=== PATIENT | female | born 1975 | race Caucasian/White ===

== ENCOUNTER → 2017-08-16 | Outpatient (CLI) | payer BC ==
[2017-08-16 08:17] LABS: Basophils % (A) 0 %; CH 30.4; CHCM 33.2; Eosinophils # (A) 0.2 k/uL (0-0.7); Eosinophils % (A) 3 %; HCT 45.4 % (34.0-46.0); HGB 14.9 gm/dL (11.4-16.0); Luc # (Auto) 0.11; Luc % (Auto) 2; Lymphocytes # (A) 1.8 k/uL (1.0-4.8); Lymphocytes % (A) 25 %; MCHC 32.7 g/dL (31.0-37.0); MCV 91.8 fL (80.0-100.0); Mean Platelet Volume 6.8; Monocytes # (A) 0.4 k/uL (0-1.0); Monocytes % (A) 6 %; Neutrophils # (A) 4.5 k/uL (1.3-7.7); Neutrophils % (A) 64 %; RBC 4.95 m/uL (3.80-5.40); RDW 11.8 % (11.5-15.5); WBC 7.1 k/uL (3.8-10.6); WBC (Perox) 6.89
[2017-08-16 08:44] LABS: ALT 20 U/L (9-52); AST 16 U/L (14-36); Alkaline Phosphatase 67 U/L (38-126); Anion Gap 11 mmol/L; Blood Urea Nitrogen 14 mg/dL (7-17); Calcium 9.2 mg/dL (8.4-10.2); Carbon Dioxide 21 mmol/L (22-30); Chloride 109 mmol/L (98-107); Cholesterol 149 mg/dL (<200); Glucose 91 mg/dL (74-99); HDL Cholesterol 56 mg/dL (40-60); Non-African American GFR(MDRD) >60 (>60 ml/min/1.73 sqM); Potassium 4.3 mmol/L (3.5-5.1); Sodium 141 mmol/L (137-145); Total Bilirubin 0.8 mg/dL (0.2-1.3); Total Protein 6.9 g/dL (6.3-8.2)
[2017-08-16 12:28] LABS: Gliadin AB IgA, Deaminated NEGATIVE (NEGATIVE); Gliadin AB IgG, Deaminated NEGATIVE (NEGATIVE); Gliadin AB IgG, Unit <0.4 U/mL; Tis Transglutaminase IgA Unit <0.5 AI; Tis Transglutaminase IgG Unit <0.8 U/mL
== END | disposition home or self-care (01) ==
LOC: LABWHC1 07:12
PROVIDERS: ATTEND Family Medicine
DX: L20.9 Atopic dermatitis, unspecified (principal); E16.2 Hypoglycemia, unspecified; R53.83 Other fatigue; R63.5 Abnormal weight gain; F41.9 Anxiety disorder, unspecified
CPT/HCPCS: 36415; 80053; 80061; 82652; 83516; 84439; 84443; 85025; 86800

== ENCOUNTER → 2017-08-18 | Outpatient (CLI) | payer BC ==
[2017-08-18 20:46] LABS: Mumps Virus IgG Ab Interp POSITIVE (NEGATIVE)
== END | disposition home or self-care (01) ==
LOC: LABWHC1 12:37
PROVIDERS: ATTEND Family Medicine
DX: Z01.84 Encounter for antibody response examination (principal)
CPT/HCPCS: 36415; 86376; 86735

== ENCOUNTER → 2018-11-04 | Outpatient (CLI) | payer BC ==
--- NOTE | 2018-11-04 13:03 | XR ---
EXAMINATION TYPE: XR chest 2V DATE OF EXAM: 11/04/2018 COMPARISON: NONE TECHNIQUE: PA and lateral views submitted. HISTORY: Cough FINDINGS: The lungs are clear and there is no pneumothorax, pleural effusion, or focal pneumonia. Biapical pl eural thickening. No overt failure. Hypertrophic change of the vertebral column. IMPRESSION: 1. No acute process.
== END | disposition home or self-care (01) ==
LOC: RADXRMAIN 12:12
PROVIDERS: ATTEND Family Medicine
DX: R05 Cough (principal)
CPT/HCPCS: 71046

== ENCOUNTER → 2019-02-26 | Outpatient (CLI) | payer BC ==
[2019-02-26 10:04] LABS: Basophils # (A) 0.1 k/uL (0-0.2); Basophils % (A) 1 %; Eosinophils # (A) 0.1 k/uL (0-0.7); Eosinophils % (A) 2 %; HCT 45.3 % (34.0-46.0); HGB 14.5 gm/dL (11.4-16.0); Lymphocytes # (A) 1.7 k/uL (1.0-4.8); Lymphocytes % (A) 30 %; MCH 30.1 pg (25.0-35.0); Mean Platelet Volume 7.1; Monocytes # (A) 0.3 k/uL (0-1.0); Monocytes % (A) 6 %; Neutrophils # (A) 3.4 k/uL (1.3-7.7); Neutrophils % (A) 59 %; Platelet Count 232 k/uL (150-450); RBC 4.81 m/uL (3.80-5.40); RDW 12.1 % (11.5-15.5); WBC 5.8 k/uL (3.8-10.6)
[2019-02-26 16:45] LABS: Albumin 4.5 g/dL (3.80-4.90); Albumin/Globulin Ratio 2.5 (1.60-3.17); Anion Gap 8.5 mmol/L (4.00-12.00); Calcium 9.3 mg/dL (8.7-10.3); Carbon Dioxide 24.5 mmol/L (21.6-31.8); Globulin 1.8 g/dL (1.6-3.3); LDL Cholesterol,Calculated 85.6 mg/dL (0.0-131.0); Potassium 4.3 mmol/L (3.5-5.5); Total Bilirubin 0.7 mg/dL (0.3-1.2); Total Protein 6.3 g/dL (6.2-8.2); VLDL Calculation 14.4 mg/dL (5.00-40.00)
== END | disposition home or self-care (01) ==
LOC: LABWHC1 09:19
PROVIDERS: ATTEND Family Medicine
DX: Z00.00 Encounter for general adult medical examination without abnormal findings (principal)
CPT/HCPCS: 36415; 80053; 80061; 84443; 85025

== ENCOUNTER → 2020-06-07 | Outpatient (CLI) | payer BC ==
[2020-06-07 09:37] LABS: Basophils % (A) 1 %; Eosinophils # (A) 0.1 k/uL (0-0.7); Eosinophils % (A) 2 %; HCT 45.2 % (34.0-46.0); HGB 14.5 gm/dL (11.4-16.0); Lymphocytes # (A) 1.6 k/uL (1.0-4.8); Lymphocytes % (A) 24 %; MCH 29.9 pg (25.0-35.0); MCHC 31.9 g/dL (31.0-37.0); MCV 93.7 fL (80.0-100.0); Mean Platelet Volume 7.4; Monocytes # (A) 0.3 k/uL (0-1.0); Monocytes % (A) 5 %; Neutrophils # (A) 4.4 k/uL (1.3-7.7); Neutrophils % (A) 67 %; Platelet Count 210 k/uL (150-450); RBC 4.83 m/uL (3.80-5.40); RDW 11.9 % (11.5-15.5); WBC 6.6 k/uL (3.8-10.6)
[2020-06-07 16:27] LABS: African American GFR (CKD) 128.5 (60.0-200.0); Albumin/Globulin Ratio 2.22 (1.60-3.17); Anion Gap 5.9 mmol/L (4.00-12.00); BUN/Creat Ratio 16.67 Ratio (12.00-20.00); Calcium 9.2 mg/dL (8.7-10.3); Carbon Dioxide 27.1 mmol/L (21.6-31.8); Chol/HDL Ratio 2.71; Globulin 1.8 g/dL (1.6-3.3); LDL Cholesterol,Calculated 88.6 mg/dL (0.0-131.0); Non-African American GFR(CKD) 110.9 (60.0-200.0); Potassium 4.4 mmol/L (3.5-5.5); Total Bilirubin 0.7 mg/dL (0.3-1.2); Total Protein 5.8 g/dL (6.2-8.2); VLDL Calculation 12.4 mg/dL (5.00-40.00)
[2020-06-07 20:59] LABS: Hemoglobin A1C 5.2 % (4.0-6.0)
== END | disposition home or self-care (01) ==
LOC: LABWHC1 08:31
PROVIDERS: ATTEND Family Medicine
DX: Z00.00 Encounter for general adult medical examination without abnormal findings (principal); E16.2 Hypoglycemia, unspecified
CPT/HCPCS: 36415; 80053; 80061; 83036; 84443; 85025

== ENCOUNTER → 2020-07-17 | Outpatient (CLI) | payer BC ==
--- NOTE | 2020-07-18 14:09 | MM ---
Reason for exam: screening (asymptomatic). Last mammogram was performed 6 years and 9 months ago. History: Patient is postmenopausal. Family history of breast cancer in maternal aunt at age 40. Took hormonal contraceptives for 5 years beginning at age 15. Physical Findings: A clinical breast exam by your physician is recommended on an annual basis and results should be correlated with mammographic findings. MG 3D Screening Mammo W/Cad Bilateral CC and MLO view(s) were taken. XCCL view(s) were taken of the right breast. Prior study comparison: October 07, 2013, bilateral digital screening mammo w/CAD. The breast tissue is heterogeneously dense. This may lower the sensitivity of mammography. Benign appearing bilateral calcifications. Middle depth grouped calcifications of left breast upper outer quadrant layer on MLO view, likely milk of calcium. ASSESSMENT: Benign, BI-RAD 2 RECOMMENDATION: Routine screening mammogram of both breasts in 1 year.
== END | disposition home or self-care (01) ==
LOC: RADMAMWWP 08:53
PROVIDERS: ATTEND Family Medicine
DX: Z12.31 Encounter for screening mammogram for malignant neoplasm of breast (principal)
CPT/HCPCS: 77063; 77067

== ENCOUNTER → 2020-12-28 | Outpatient (CLI) | payer BC ==
[2020-12-28 15:28] LABS: Basophils # (A) 0.03 X 10*3/uL (0.00-0.10); Basophils % (A) 0.6 %; Eosinophils # (A) 0.13 X 10*3/uL (0.04-0.35); Eosinophils % (A) 2.6 %; HCT 43.5 % (37.2-46.3); HGB 13.8 g/dL (12.0-15.0); Lymphocytes # (A) 1.61 X 10*3/uL (0.90-5.00); Lymphocytes % (A) 32.6 %; MCH 30.3 pg (27.0-32.0); MCHC 31.7 g/dL (32.0-37.0); MCV 95.6 fL (80.0-97.0); Mean Platelet Volume 10.9 fL (9.5-12.2); Monocytes # (A) 0.49 X 10*3/uL (0.20-1.00); Monocytes % (A) 9.9 %; Neutrophils # (A) 2.67 X 10*3/uL (1.80-7.70); Neutrophils % (A) 54.1 %; Platelet Count 225 X 10*3/uL (140-440); RBC 4.55 X 10*6/uL (4.10-5.20); RDW 11.9 % (11.5-14.5); WBC 4.94 X 10*3/uL (4.50-10.00)
[2020-12-28 23:21] LABS: African American GFR (CKD) 121.3 (60.0-200.0); Albumin 3.9 g/dL (3.80-4.90); Albumin/Globulin Ratio 1.77 (1.60-3.17); Anion Gap 5.5 mmol/L (4.00-12.00); BUN/Creat Ratio 18.57 Ratio (12.00-20.00); Calcium 9.4 mg/dL (8.7-10.3); Carbon Dioxide 27.5 mmol/L (21.6-31.8); Globulin 2.2 g/dL (1.6-3.3); Non-African American GFR(CKD) 104.6 (60.0-200.0); Potassium 4.2 mmol/L (3.5-5.5); Total Bilirubin 0.7 mg/dL (0.3-1.2); Total Protein 6.1 g/dL (6.2-8.2)
== END | disposition home or self-care (01) ==
LOC: LABWHC1 08:25
PROVIDERS: ATTEND Family Medicine
DX: E16.2 Hypoglycemia, unspecified (principal); R10.11 Right upper quadrant pain; R53.83 Other fatigue
CPT/HCPCS: 36415; 80053; 82150; 82306; 82607; 83525; 83690; 84443; 85025; 86769

== ENCOUNTER → 2022-06-19 | Outpatient (CLI) | payer BC ==
--- NOTE | 2022-06-19 15:21 | MM ---
Reason for Exam: Clinical finding. Last mammogram was performed 1 year(s) and 11 month(s) ago. Patient History: Menarche at age 12. First Full-Term at age 23. Left ovary removed at age 36. Right ovary removed at age 36. Hysterectomy at age 36. Postmenopausal. Hormonal Contraceptives for 5 years from age 15 until age 20. Maternal aunt had breast cancer, age 40. Risk Values: Yudith 5 year model risk: 0.8%. NCI Lifetime model risk: 8.4%. Prior Study Comparison: 10/07/2013 Bilateral Screening Mammogram, [facility]. 07/17/2020 Bilateral Screening Mammogram, [facility]. Tissue Density: The breast tissue is heterogeneously dense. This may lower the sensitivity of mammography. Findings: Analyzed By CAD. On the right, some areas of nodular asymmetric density disperses on additional views compatible with superimposition shadow. On the left, an area of asymmetric density inferiorly on the MLO view remains unchanged. No significant change from prior exams. Given the reported history and clinical concern, further ultrasound evaluation is recommended. Overall Assessment: Incomplete: need additional imaging evaluation, BI-RAD 0 Management: Diagnostic Breast Ultrasound of both breasts. Electronically signed and approved by: Vivek Lord M.D. Radiologist
--- NOTE | 2022-06-19 16:01 | USB ---
Reason for Exam: Additional evaluation requested from abnormal screening. Patient History: Menarche at age 12. First Full-Term at age 23. Left ovary removed at age 36. Right ovary removed at age 36. Hysterectomy at age 36. Postmenopausal. Hormonal Contraceptives for 5 years from age 15 until age 20. Maternal aunt had breast cancer, age 40. Risk Values: Yudith 5 year model risk: 0.8%. NCI Lifetime model risk: 8.4%. Prior Study Comparison: 10/07/2013 Bilateral Screening Mammogram, [facility]. 07/17/2020 Bilateral Screening Mammogram, [facility]. Findings: The whole breast of both breasts, the axilla of both breasts and the retroareolar of both breasts were scanned. Whole bilateral breast ultrasounds including scanning of the subareolar region and axilla. There is dense tissue present throughout on both sides. On the left, 12:00, there is a benign 5 mm cyst. No other solid or cystic lesion or axillary lymphadenopathy. Overall Assessment: Benign, BI-RAD 2 Management: Screening Mammogram of both breasts in 1 year. Further clinical management for any suspicious palpable or cutaneous areas. This exam should not preclude additional follow-up if there are suspicious clinical features. Patient should continue monthly self breast exams. Electronically signed and approved by: Vivek Lord M.D. Radiologist
== END | disposition home or self-care (01) ==
LOC: RADMAMWWP 14:11
PROVIDERS: ATTEND Family Medicine
DX: D05.90 Unspecified type of carcinoma in situ of unspecified breast (principal); R92.8 Other abnormal and inconclusive findings on diagnostic imaging of breast; Z78.0 Asymptomatic menopausal state; Z80.3 Family history of malignant neoplasm of breast; Z90.710 Acquired absence of both cervix and uterus
CPT/HCPCS: 77066

== ENCOUNTER → 2023-08-08 | Outpatient (CLI) | payer BC ==
[2023-08-08 11:08] LABS: Basophils # (A) 0.03 X 10*3/uL (0.00-0.10); Basophils % (A) 0.4 %; Eosinophils # (A) 0.12 X 10*3/uL (0.04-0.35); Eosinophils % (A) 1.8 %; HCT 45.4 % (37.2-46.3); HGB 15.1 d/dL (12.0-15.0); Lymphocytes # (A) 1.98 X 10*3/uL (0.90-5.00); Lymphocytes % (A) 29.5 %; MCH 30.9 pg (27.0-32.0); MCHC 33.3 d/dL (32.0-37.0); MCV 92.8 FL (80.0-97.0); Mean Platelet Volume 10.4 FL (9.5-12.2); Monocytes # (A) 0.56 X 10*3/uL (0.20-1.00); Monocytes % (A) 8.3 %; NRBC Per 100 WBC 0 X 10*3/uL (0.00-0.01); Neutrophils # (A) 4.02 X 10*3/uL (1.80-7.70); Neutrophils % (A) 59.9 %; Platelet Count 234 X 10*3/uL (140-440); RBC 4.89 X 10*6/uL (4.10-5.20); RDW 11.9 % (11.5-14.5); WBC 6.72 X 10*3/uL (4.50-10.00)
[2023-08-08 14:21] LABS: ALT 9 U/L (8-44); AST 15 U/L (13-35); Albumin 4.2 d/dL (3.8-4.9); Albumin/Globulin Ratio 2.21 Ratio (1.60-3.17); Alkaline Phosphatase 58 U/L (41-126); BUN/Creat Ratio 22.83 Ratio (12.00-20.00); Blood Urea Nitrogen 13.7 mg/dL (9.0-27.0); Calcium 9.1 mg/dL (8.7-10.3); Carbon Dioxide 25.3 mmol/L (21.6-31.8); Chloride 107 mmol/L (96-109); Chol/HDL Ratio 2.86 Ratio; Globulin 1.9 d/dL (1.6-3.3); Glucose 95 mg/dL (70-110); LDL Cholesterol,Calculated 100.9 mg/dL (0.0-131.0); Potassium 4.3 mmol/L (3.5-5.5); Sodium 141 mmol/L (135-145); Total Bilirubin 0.7 mg/dL (0.3-1.2); Total Protein 6.1 d/dL (6.2-8.2); VLDL Calculation 13.52 mg/dL (5.00-40.00)
== END | disposition home or self-care (01) ==
LOC: LABWHC1 07:19
PROVIDERS: ATTEND Family Medicine
DX: Z00.00 Encounter for general adult medical examination without abnormal findings (principal)
CPT/HCPCS: 36415; 80053; 80061; 84443; 85025

== ENCOUNTER → 2024-07-01 | Outpatient (CLI) | payer BC ==
--- NOTE | 2024-07-01 09:56 | US ---
EXAMINATION TYPE: US pelvic complete DATE OF EXAM: 07/01/2024 COMPARISON: NONE CLINICAL INDICATION: Female, 49 years old with history of R10.2 PELVIC PAIN; Partial hysterectomy LLQ pain TECHNIQUE: Transabdominal (TA). EXAM MEASUREMENTS: Uterus: Surgically absent cm Endometrial Stripe: Surgically absent 1. Uterus: Surgically absent 2. Endometrium: Surgically absent 3. Right Ovary: Obscured by overlying bowel gas 4. Left Ovary: 2.6 x 1.7 x 3.1 cm . 5. Bilateral Adnexa: wnl 6. Posterior cul-de-sac: wnl No organizing fluid collection or mass. IMPRESSION: No evidence for acute process.
--- NOTE | 2024-07-06 14:10 | MM ---
Reason for Exam: Screening (asymptomatic). Last mammogram was performed 2 year(s) and 0 month(s) ago. Patient History: Menarche at age 12. First Full-Term at age 23. Left ovary removed at age 36. Right ovary removed at age 36. Hysterectomy at age 36. Postmenopausal. Hormonal Contraceptives for 5 years from age 15 until age 20. Maternal aunt had breast cancer, age 40. Risk Values: Yudith 5 year model risk: 0.8%. NCI Lifetime model risk: 8.2%. Prior Study Comparison: 10/07/2013 Bilateral Screening Mammogram, [facility]. 07/17/2020 Bilateral Screening Mammogram, [facility]. 06/19/2022 Bilateral MG diagnostic mammo w CAD [facility], [facility]. Tissue Density: The breasts are heterogeneously dense, which may obscure small masses. Findings: Analyzed By CAD. Right breast: There is no suspicious group of microcalcifications or new suspicious mass. Left breast: There is no suspicious group of microcalcifications or new suspicious mass. Overall Assessment: Negative, BI-RAD 1 Management: Screening Mammogram of both breasts in [address] [facility] will attempt to contact patient to return for supplemental views and ultrasound if indicated. Patient should continue monthly self-breast exams. A clinical breast exam by your physician is recommended on an annual basis. This exam should not preclude additional follow-up of suspicious palpable abnormalities. Note on Yudith scores and lifetime risk: 1. A Yudith score greater than 3% is considered moderate risk. If this is the case, consider specialist referral to assess eligibility for a risk reducing agent. 2. If overall lifetime risk for the development of breast cancer is 20% or higher, the patient may qualify for future screening with alternating mammogram and breast MRI. Electronically signed and approved by: Dorian Andrew DO
== END | disposition home or self-care (01) ==
LOC: RADMAMWWP 08:48
PROVIDERS: ATTEND Family Medicine
DX: Z12.31 Encounter for screening mammogram for malignant neoplasm of breast (principal); R92.333 Mammographic heterogeneous density, bilateral breasts; R10.2 Pelvic and perineal pain; Z78.0 Asymptomatic menopausal state; Z80.3 Family history of malignant neoplasm of breast; Z90.722 Acquired absence of ovaries, bilateral
CPT/HCPCS: 76856; 77067

== ENCOUNTER → 2025-05-28 | Outpatient (CLI) | payer BC ==
[2025-05-28 14:43] LABS: Basophils # (A) 0.03 X 10*3/uL (0.00-0.10); Basophils % (A) 0.4 %; Eosinophils # (A) 0.09 X 10*3/uL (0.04-0.35); Eosinophils % (A) 1.3 %; HCT 43.5 % (37.2-46.3); HGB 14.1 g/dL (12.0-15.0); Immature Grans, Automated 0.10 %; Lymphocytes # (A) 2.01 X 10*3/uL (0.90-5.00); Lymphocytes % (A) 29.7 %; MCH 29.6 pg (27.0-32.0); MCHC 32.4 g/dL (32.0-37.0); MCV 91.4 FL (80.0-97.0); Monocytes # (A) 0.61 X 10*3/uL (0.20-1.00); Monocytes % (A) 9.0 %; NRBC Per 100 WBC 0 X 10*3/uL (0.00-0.01); Neutrophils # (A) 4.01 X 10*3/uL (1.80-7.70); Neutrophils % (A) 59.5 %; Platelet Count 212 X 10*3/uL (140-440); RBC 4.76 X 10*6/uL (4.10-5.20); RDW 12.1 % (11.5-14.5); WBC 6.76 X 10*3/uL (4.50-10.00)
[2025-05-28 15:17] LABS: ALT 8 U/L (8-44); AST 16 U/L (13-35); Albumin 4.3 g/dL (3.8-4.9); Albumin/Globulin Ratio 2.05 Ratio (1.60-3.17); Alkaline Phosphatase 53 U/L (41-126); Anion Gap 13.20 mmol/L (4.00-12.00); BUN/Creat Ratio 16.86 Ratio (12.00-20.00); Blood Urea Nitrogen 11.8 mg/dL (9.0-27.0); Calcium 9.3 mg/dL (8.7-10.3); Carbon Dioxide 23.8 mmol/L (21.6-31.8); Chloride 110 mmol/L (96-109); Cholesterol 195.00 mg/dL (0.00-200.00); Globulin 2.1 g/dL (1.6-3.3); Glucose 90 mg/dL (70-110); HDL Cholesterol 56.60 mg/dL (40.00-60.00); LDL Cholesterol,Calculated 126.5 mg/dL (0.0-131.0); Potassium 4.4 mmol/L (3.5-5.5); Sodium 147 mmol/L (135-145); Total Protein 6.4 g/dL (6.2-8.2); Triglycerides 59.40 mg/dL (0.00-149.00); VLDL Calculation 11.88 mg/dL (5.00-40.00)
== END | disposition home or self-care (01) ==
LOC: LABWHC1 08:49
PROVIDERS: ATTEND Family Medicine
DX: Z00.00 Encounter for general adult medical examination without abnormal findings (principal)
CPT/HCPCS: 36415; 80053; 80061; 82306; 82533; 82670; 84403; 84443; 85025